=== PATIENT | male | born 1960 | race Caucasian/White ===

== ENCOUNTER → 2017-04-15 | Day surgery (SDC) | payer SELFPAY ==
[2017-04-11 13:23] VITALS: Ht 175.3 cm; Wt 90.9 kg
[~2017-04-15] VITALS: Ht 175.3 cm; Wt 90.9 kg
[~2017-04-15] MED LIST: ATROPINE SULFATE 0.1 MG/ML 5ML SYR IV PRN; EpHEDrine SULFATE INJ 50 MG/ML AMP IV PRN; LIDOCAINE HCL 2% 2 ML VIAL (20MG/ML) ONE; MIDAZOLAM HCL 1 MG/ML 2ML VIAL ONE; ONDANSETRON INJ 2 MG/ML 2 ML VIAL ONE; POTASSIUM PO; PROPOFOL IV EMULSION 10 MG/ML 20 ML VIAL IV ONE
[2017-04-15 14:24] VITALS: TEMP 36.9
--- NOTE | 2017-04-15 15:27 | Endo History and Physical ---
History & Physical Date of Service: Apr 15, 2017. Chief Complaint: Screening Referring Physician: Dr. Saurabh Evans History of Present Illness 1st screening colon Past Surgical History Hx Cardiac Surgery: No Hx Internal Defibrillator: No Hx Pacemaker: No Hx Abdominal Surgery: Yes (APPY) Hx of Implantable Prosthesis: No Hx Post-Op Nausea and Vomiting: No Hx Cancer Surgery: No Hx Thoracic Surgery: No Hx Orthopedic: No Hx Urinary Tract Surgery: No Family History None Social History Smoking Status: Never Smoker Hx Substance Use: No Hx Alcohol Use: No Allergies Coded Allergies: No Known Allergies (Verified , 04/15/17) Current Medications Reported Home Medications Medications Dose Route/Sig Max Daily Dose Days Date Category [Potassium] 1 Cap PO QAM 04/11/17 Reported Vital Signs Weight (Kilograms): 90.91 Height (Feet): 5 Height (Inches): 9 Date Time Temp Pulse Resp B/P (MAP) Pulse Ox O2 Delivery O2 Flow Rate FiO2 04/15/17 14:24 36.9 67 20 135/80 (98) 94 Room Air Physical Exam General Appearance: WD/WN, no apparent distress Respiratory/Chest: Auscultation: breath sounds normal Cardiovascular: Heart Auscultation: RRR Abdomen: Bowel Sounds: normal Inspection & Palpation: soft, non-distended, no tenderness, guarding & rebound Assessment and Plan screening colonoscopy
--- NOTE | 2017-04-15 16:32 | Discharge Instructions ---
Endoscopy Patient Instructions Date / Procedure(s) Performed Apr 15, 2017. Colonoscopy Allergy Information Coded Allergies: No Known Allergies (Verified , 04/15/17) Discharge Date / Findings Apr 15, 2017. normal colon Medication Instructions Restart Stopped Medication(s): Reported Home Medications Medications Dose Route/Sig Max Daily Dose Days Date Category [Potassium] 1 Cap PO QAM 04/11/17 Reported Reported Home Medications Medications Dose Route/Sig Max Daily Dose Days Date Category [Potassium] 1 Cap PO QAM 04/11/17 Reported Provider Instructions Activity Restrictions - No exercising or heavy lifting for 24 hours. - Do not drink alcohol the day of the procedure. - Do not drive a car or operate machinery until the day after the procedure. - Do not make any important decisions or sign important papers in 24 hours after the procedure. Following Day: - Return to full activity which may include returning to work/school. Diet Start your diet with liquids and light foods (jello, soup, juice, toast). Then eat your usual diet if not nauseated. Treatment For Common After Affects For mild abdominal pain, bloating, or excessive gas: - Rest - Eat lightly - Lie on right side Follow-Up Information Follow-up with Dr. Saurabh Evans as scheduled Anesthesia Information What You Should Know You have had a procedure that required some medicine to reduce anxiety and discomfort. This treatment is called moderate sedation. After receiving the treatment, you may be sleepy, but you will be able to breathe on your own. The effects of the treatment may last for several hours. Follow these instructions along with Activity/Diet recommendations noted above: * Do NOT do anything where dizziness or clumsiness would be dangerous. * Rest quietly at home today, then you can be up and about tomorrow. * Have a responsible person stay with you the rest of today. * You may have had an I.V. today. If so, you may take the dressing off later today. Recommendations Call your doctor if: * Trouble breathing * Continuous vomiting for more than 24 hours * Temperature above 101 degrees * Severe abdominal pain or bloating * Pain not relieved by pain medicine ordered * There is increased drainage or redness from any incision * A large amount of rectal bleeding greater than 2-3 tablespoons. (If you had a polyp/s removed or have hemorrhoids, a small amount of blood - from the rectum is to be expected.) * You have any unanswered questions or concerns. IN THE EVENT OF A SERIOUS EMERGENCY, GO TO THE NEAREST EMERGENCY ROOM Your discharge instructions were prepared by provider Vadim Resendez. Patient Instructions Signature Page Saleem Padron Patient (or Guardian) Signature/Date: I have read and understand the instructions given to me by my caregivers. Caregiver/RN/Doctor Signature/Date: The above-named patient and/or guardian has received patient instructions on this date. + Original Patient Signature Page (only) stays with chart. Please make copy for patient.
--- NOTE | 2017-04-15 16:37 | GI REPORT ---
Procedure Date: 04/15/2017 4:08 PM Procedure: Colonoscopy Indications: Screening for colorectal malignant neoplasm, This is the patient's first colonoscopy Medicines: Propofol per Anesthesia Complications: No immediate complications. Estimated blood loss: None. Estimated Blood Loss: Estimated blood loss: none. Procedure: Pre-Anesthesia Assessment: - Prior to the procedure, a History and Physical was performed, and patient medications and allergies were reviewed. The patient's tolerance of previous anesthesia was also reviewed. The risks and benefits of the procedure and the sedation options and risks were discussed with the patient. All questions were answered, and informed consent was obtained. Prior Anticoagulants: The patient has taken no previous anticoagulant or antiplatelet agents. ASA Grade Assessment: II - A patient with mild systemic disease. After reviewing the risks and benefits, the patient was deemed in satisfactory condition to undergo the procedure. After I obtained informed consent, the scope was passed under direct vision. Throughout the procedure, the patient's blood pressure, pulse, and oxygen saturations were monitored continuously. The scope was introduced through the anus and advanced to the terminal ileum, with identification of the appendiceal orifice and IC valve. The colonoscopy was performed without difficulty. The patient tolerated the procedure well. The quality of the bowel preparation was good. Findings: The perianal and digital rectal examinations were normal. Pertinent negatives include normal sphincter tone, no palpable rectal lesions and no anal lesion or abnormality was detected. The colon (entire examined portion) appeared normal. The terminal ileum appeared normal. The retroflexed view of the distal rectum and anal verge was normal and showed no anal or rectal abnormalities. Impression: - The entire examined colon is normal. - The examined portion of the ileum was normal. - The distal rectum and anal verge are normal on retroflexion view. - No specimens collected. Recommendation: - Discharge patient to home (ambulatory). - Patient has a contact number available for emergencies. The signs and symptoms of potential delayed complications were discussed with the patient. Return to normal activities tomorrow. Written discharge instructions were provided to the patient. - Resume regular diet. - Continue present medications. - Repeat colonoscopy in 10 years for screening purposes. - Return to referring physician as previously scheduled. MD Vadim Roblero MD 04/15/2017 4:36:59 PM This report has been signed electronically. Note Initiated On: 04/15/2017 4:08 PM I attest to the content of the Intraoperative Record and orders documented therein, exceptions below
[2017-04-15 17:06] VITALS: BP 123/73; PULSE 59; O2SAT 96
--- NOTE | 2017-04-15 17:12 | Anesthesiology Progress Note ---
Anesthesia Post Op Note Date & Time Apr 15, 2017 at 17:12 Vital Signs Pain Intensity: 0 Vital Signs Past 12 Hours Date Time Temp Pulse Resp B/P (MAP) Pulse Ox O2 Delivery O2 Flow Rate FiO2 04/15/17 16:51 55 16 114/67 (83) 97 Room Air 04/15/17 16:36 55 12 109/72 (84) 96 Room Air 04/15/17 14:24 36.9 67 20 135/80 (98) 94 Room Air Notes Mental Status: alert / awake / arousable, participated in evaluation Pt Amnestic to Procedure: Yes Nausea / Vomiting: adequately controlled Pain: adequately controlled Airway Patency, RR, SpO2: stable & adequate BP & HR: stable & adequate Hydration State: stable & adequate Anesthetic Complications: no major complications apparent
== END | disposition home or self-care (01) ==
LOC: C.GI 13:59
PROVIDERS: ATTEND Internal Medicine Gastroenterology
DX: Z12.11 Encounter for screening for malignant neoplasm of colon (principal)

== ENCOUNTER 2017-05-19 09:47 | Day surgery (SDC) | payer OTHER ==
[2017-05-17 08:59] VITALS: BMI 31.0
[~2017-05-19] VITALS: Ht 175.3 cm; Wt 95.4 kg
[~2017-05-19 09:47] MED LIST changes: -ATROPINE SULFATE 0.1 MG/ML 5ML SYR IV PRN; +CEFAZOLIN 2000MG IV PUSH 10 ML IV SCH; -EpHEDrine SULFATE INJ 50 MG/ML AMP IV PRN; +FENTANYL CITRATE INJ 50 MCG/1 ML 2 ML VIAL ONE; +LACTATED RINGER'S 1000ML 1,000 ML IV SCH; -LIDOCAINE HCL 2% 2 ML VIAL (20MG/ML) ONE; -ONDANSETRON INJ 2 MG/ML 2 ML VIAL ONE; +POTA10CA28 PO; -POTASSIUM PO; -PROPOFOL IV EMULSION 10 MG/ML 20 ML VIAL IV ONE
[2017-05-19 10:15] VITALS: BP 133/82; PULSE 48; TEMP 36.6; O2SAT 96; Ht 175.3 cm; Wt 95.4 kg
--- NOTE | 2017-05-19 10:40 | History & Physical Bridge Note ---
H&P Re-Evaluation Bridge Note: I have examined the patient, reviewed the History & Physical and in the interval since the performance of the History & Physical I have noted the following changes of clinical significance: No changes noted
[2017-05-19] MEDS ORDERED: BUPIVACAINE/EPINEPHRINE 0.5% MPF 1:200,000 30 ML VIAL ONE (10:45)
--- NOTE | 2017-05-19 11:45 | [facility] Operative Report ---
Operative Report Operative Date May 19, 2017. Pre-Operative Diagnosis umbilical hernia Post-Operative Diagnosis same Procedure(s) Performed open umbilical hernia repair Surgeon earnest Candy Feeder Surgeon(s) Quoc almaguer Findings approx 1.5 cm umbilical hernia Anesthesia LMA Complication(s) None Disposition Recovery Room / PACU Description of Procedure After informed consent was obtained the patient was taken to the operating room and placed in a supine position. After successful placement of the laryngeal mask airway the abdomen was shaved and sterilely prepped and draped in usual fashion. An infraumbilical curvilinear incision was made with 15 blade scalpel and carried down through the soft tissue using electrocautery. We carried this down to the anterior fascia. A Margarita clamp was then used to come around the superior pole of the umbilicus. We detached the umbilical stalk using electrocautery revealing an approximate 1.5 cm defect. There was some omentum and preperitoneal fat within it. We did open the hernia sac and excised it. We were then able to reduce the omentum back down into the abdominal cavity. Because of the small size the defect I opted to not use mesh. I used #1 Ethibond in interrupted [id number] fashion to primarily close the defect without much tension. We then thoroughly irrigated the wound. I reattach the umbilicus to the fascia using 0 Vicryl. We then closed deep layers using 3-0 Vicryl and skin closed using 4-0 Monocryl. Marcaine was injected around the area for postoperative analgesia and skin glue used as a dressing My physician's faculty research assistant was present throughout the entire case. She helped prepped the patient as well as all retractors and expose the defect for the entire case. She also help close the deep wound as well as skin and placed the abdominal dressing I attest to the content of the Intraoperative Record and any orders documented therein. Any exceptions are noted below.
[2017-05-19] MEDS ORDERED: ONDANSETRON INJ 2 MG/ML 2 ML VIAL ONE (11:54)
[2017-05-19] MEDS ORDERED: PROPOFOL IV EMULSION 10 MG/ML 20 ML VIAL IV ONE (11:54)
[2017-05-19] MEDS ORDERED: DEXAMETHASONE SOD INJ 4 MG/ML VIAL ONE (11:54)
[2017-05-19] MEDS ORDERED: LIDOCAINE HCL 2% 2 ML VIAL (20MG/ML) ONE (11:54)
[2017-05-19] MEDS ORDERED: SODIUM CHLORIDE 0.9% 1000ML 1,000 ML IV SCH (11:56)
[2017-05-19] MEDS ORDERED: HYDR-5688 PO (11:57)
[2017-05-19] MEDS ORDERED: ONDANSETRON INJ 2 MG/ML 2 ML VIAL IV PRN ×2 (12:00→12:15)
[2017-05-19] MEDS ORDERED: HYDROCODONE/ACETAMIN 5/325MG TAB PO PRN ×2 (12:00)
--- NOTE | 2017-05-19 12:00 | Discharge Instructions ---
Discharge Instructions Date of Service May 19, 2017. Admission Reason for Admission: Umbilical Hernia Discharge Discharge Diagnosis / Problem: Umbilical Hernia Discharge Goals Goal(s): Decrease discomfort, Improve function Activity Recommendations Activity Limitations: as noted below Lifting Limitations: no more than 10 pounds Exercise/Sports Limitations: until after follow-up appointment May Resume Sexual Activity: after follow-up appointment Shower/Bathe: tomorrow Driving or Machine Use: resume 1 day after discharge . Instructions / Follow-Up Instructions / Follow-Up You may remove the dressing over your incision tomorrow morning. Over your incision is surgical glue, Dermabond, you can shower with soap and water tomorrow AM. Please follow-up with Dr. Best in the office in 1-2 weeks. Please call the office at [phone] to make an appointment if you do not have one already. Please call the office with any questions or concerns. Current Hospital Diet Patient's current hospital diet: Discharge Diet Recommended Diet: Regular Diet Procedures Procedures Performed: open umbilical hernia repair Pending Studies Studies pending at discharge: no Medical Emergencies . Who to Call and When: Medical Emergencies: If at any time you feel your situation is an emergency, please call 911 immediately. . Non-Emergent Contact Non-Emergency issues call your: Primary Care Provider, Surgeon Call Non-Emergent contact if: temperature is above 101.5, your pain is not controlled, wound has increased drainage, wound has increased redness . "Provider Documentation" section prepared by Falguni Adan. . VTE Core Measure Inpt VTE Proph given/why not?: SCD's [place] Drug Monitoring Program Search Results: patient reviewed within database, no issues identified
[2017-05-19] MEDS ORDERED: FENTANYL CITRATE INJ 50 MCG/1 ML 2 ML VIAL IV PRN (12:15)
[2017-05-19] MEDS ORDERED: LABETALOL HCL IV 5 MG/ML 20ML IV PRN (12:15)
[2017-05-19] MEDS ORDERED: ATROPINE SULFATE 0.1 MG/ML 5ML SYR IV PRN (12:15)
[2017-05-19] MEDS ORDERED: KETOROLAC TROMETHAMINE 30 MG/ML VIAL IV. PRN (12:15)
[2017-05-19 12:47] VITALS: BP 125/82; PULSE 48; TEMP 36.6; O2SAT 94
[2017-05-19 13:15] VITALS: BP 145/82; PULSE 51; TEMP 36; O2SAT 97
--- NOTE | 2017-05-19 13:35 | Anesthesiology Progress Note ---
Anesthesia Post Op Note Date & Time May 19, 2017 at 13:34 Vital Signs Pain Intensity: 0 Vital Signs Past 12 Hours Date Time Temp Pulse Resp B/P (MAP) Pulse Ox O2 Delivery O2 Flow Rate FiO2 05/19/17 12:35 36.0 58 12 119/73 94 Room Air 05/19/17 12:25 47 12 123/88 93 Room Air 05/19/17 12:15 47 12 132/84 99 Oxymask 10 05/19/17 12:05 48 12 132/84 100 Oxymask 10 05/19/17 11:57 36.1 53 12 137/89 98 Oxymask 10 05/19/17 10:15 36.6 48 18 133/82 (99) 96 Room Air Notes Mental Status: alert / awake / arousable, participated in evaluation Pt Amnestic to Procedure: Yes Nausea / Vomiting: adequately controlled Pain: adequately controlled Airway Patency, RR, SpO2: stable & adequate BP & HR: stable & adequate Hydration State: stable & adequate Anesthetic Complications: no major complications apparent
== END 2017-05-19 13:42 | disposition home or self-care (01) ==
LOC: C.ACU 09:47
PROVIDERS: ATTEND Surgery
DX: K42.9 Umbilical hernia without obstruction or gangrene (principal); E66.9 Obesity, unspecified; Z68.31 Body mass index [BMI] 31.0-31.9, adult; Z79.899 Other long term (current) drug therapy; Z90.89 Acquired absence of other organs; Z80.9 Family history of malignant neoplasm, unspecified

== ENCOUNTER 2024-09-28 01:59 | Inpatient (IN) ==
[2024-09-28] MEDS: SODIUM CHLORIDE 0.9% 1,000 ML IV ONE ×2 (03:23→05:46)
[2024-09-28] MEDS: ONDANSETRON INJ 2 MG/ML 2 ML VIAL IV STA (03:23)
[2024-09-28] MEDS: ACETAMINOPHEN 1,000 MG/100 ML VIAL IV STA (03:24)
[2024-09-28] MEDS: diphenhydrAMINE 50 MG/ML VIAL IV STA (03:24)
[2024-09-28] MEDS: MoRPHine SULFATE 4 MG/ML 1 ML CARP\\VIAL IV PRN (03:24)
[2024-09-28] MEDS: KETOROLAC 30 MG/ML VIAL IV STA (03:24)
[2024-09-28 03:35] LABS: Hematocrit (blood only) 41.6 % (42.0-52.0); Hemoglobin 14.2 g/dl (14.0-18.0); Mean Corpuscular Hgb Conc 34.1 g/dL (32.0-36.0); Mean Corpuscular Volume 87.9 fL (80.0-100.0); Mean Platelet Volume 9.3 fL (9.4-12.4); Platelet Count 183 K/uL (130-400); RDW Coefficient of Variation 13.4 % (11.5-14.5); RDW Standard Deviation 43.5 fL (36.4-46.3); Red Blood Count 4.73 M/uL (4.70-6.10); White Blood Count 5.49 K/ul (4.8-10.8)
[2024-09-28 03:38] LABS: Appearance Urine Clear (Clear); Bilirubin Urine Negative (Negative); Blood Urine Negative (Negative); Color Urine Yellow; Glucose Urine UA Negative (Negative); Ketones Urine Trace (Negative); Leukocyte Esterase Urine Negative (Negative); Nitrite Urine Negative (Negative); Protein Urine Negative (Negative); Specific Gravity Urine 1.017 (1.000-1.030); Urobilinogen Urine Negative (Negative); pH Urine 5.5 (4.5-7.5)
[2024-09-28 03:54] LABS: Albumin Globulin Ratio 1.2 (0.9-2); Albumin Level 3.9 gm/dl (3.4-5.0); BUN Creatinine Ratio 18.3 (10-20); Bilirubin,Total 0.6 mg/dl (0.2-1.0); C Reactive Protein 2.07 mg/dl (0-0.5); Calcium 8.8 mg/dl (8.6-10.3); Creatinine Clr Calc Pharmacy 91.8 ml/min; Globulin 3.2 gm/dl (2.5-4.0); Potassium 4.4 mmol/L (3.5-5.1); Total Protein 7.1 gm/dl (6.0-8.3)
[2024-09-28 04:00] LABS: Troponin I High Sensitivity 4.1 pg/ml (0-20)
[2024-09-28 04:10] LABS: Thyroid Stimulating Hormone 6.636 uIu/ml (0.300-4.500)
[2024-09-28 04:15] LABS: ALC (manual) 1.32 K/uL (1.2-3.4); ANC (manual) 3.51 K/uL (1.4-6.5); Eosinophils # (manual) 0.16 K/uL (0-0.50); Eosinophils % (manual) 3 %; Lymphocytes # (manual) 0.71 K/uL (1.2-3.4); Lymphocytes % (manual) 13 %; Monocytes # (manual) 0.49 K/uL (0.11-0.59); Monocytes % (manual) 9 %; Neutrophils # (manual) 3.51 K/uL (1.40-6.50); Neutrophils % (manual) 64 %; Polychromasia 1+; Reactive Lymphocytes % (manual) 11 %
[2024-09-28 04:24] LABS: Adenovirus PCR Not Detected (NotDetected); Bordetella parapertussis PCR Not Detected (NotDetected); Bordetella pertussis PCR Not Detected (NotDetected); Chlamydia pneumoniae PCR Not Detected (NotDetected); Coronavirus 229E PCR Not Detected (NotDetected); Coronavirus CoV-2 (COVID19)PCR Not Detected (NotDetected); Coronavirus HKU1 PCR Not Detected (NotDetected); Coronavirus NL63 PCR Not Detected (NotDetected); Coronavirus OC43PCR Not Detected (NotDetected); Human Metapneumovirus PCR Not Detected (NotDetected); Influenza A PCR Not Detected (NotDetected); Influenza B PCR Not Detected (NotDetected); Mycoplasma pneumoniae PCR Not Detected (NotDetected); Parainfluenza Virus 1 PCR Not Detected (NotDetected); Parainfluenza Virus 2 PCR Not Detected (NotDetected); Parainfluenza Virus 3 PCR Not Detected (NotDetected); Parainfluenza Virus 4 PCR Not Detected (NotDetected); Respiratory Syncytial VirusPCR Not Detected (NotDetected); Rhinovirus/Enterovirus PCR Not Detected (NotDetected)
[2024-09-28] MEDS: OPTIRAY 320 125ml IV ONE (04:38)
[2024-09-28 04:45] LABS: T4 Free Thyroxine 0.74 ng/dl (0.61-1.60)
--- NOTE | 2024-09-28 05:12 | CT Scan Report ---
EXAM: CT angio head w con CLINICAL HISTORY: atypical migraine TECHNIQUE: Contrast enhanced thin slice CT angiography scan of the cerebral vessels was performed with intravenous contrast. Angiographic images were processed, 3D MIP images were acquired for interpretation. Contiguous axial images were obtained. Reformatted coronal and sagittal images were also reviewed. If IV contrast material had not been administered, the likelihood of detecting abnormalities relevant to the patients condition would have been substantially decreased. CT scan was performed according to ALARA (as low as reasonable achievable). COMPARISON: none. FINDINGS: Bilateral internal carotid arteries show normal course, calibre and opacification in the canalicular and cavernous part. Their division into the anterior cerebral artery and middle cerebral artery is defined. A1, A2 and M1, M2 segments are normal on both the sides. Bilateral vertebral arteries are seen to unite the form the basilar artery in a normal fashion. Basilar artery shows normal course, caliber and opacification. Its division into the posterior cerebral arteries is defined. Bilateral P1 and P2 segments are normal. Visualized venous structures show normal opacification. No evidence of intracranial aneurysm or AV malformation is seen. IMPRESSION: 1. No evidence of stenosis or aneurysm. No evidence of dissection. Electronically signed by Hoang Hawkins 09-28-2024 05:11 AM
--- NOTE | 2024-09-28 05:12 | CT Scan Report ---
EXAM: CT angio neck with con CLINICAL HISTORY: atypical migraine TECHNIQUE: Contrast enhanced thin slice CT angiography scan of the carotid vessels was performed with intravenous contrast. Angiographic images were processed, 3D MIP images were acquired for interpretation.Contiguous axial images were obtained. Reformatted coronal and sagittal images were also reviewed. If IV contrast material had not been administered, the likelihood of detecting abnormalities relevant to the patients condition would have been substantially decreased. CT scan was performed according to ALARA (as low as reasonable achievable). COMPARISON: None. FINDINGS: Included great vessels of the aortic arch are grossly unremarkable. Common carotid artery, carotid Bulb, internal carotid artery , and origin of the external carotid artery are well opacified. Vertebral arteries are well opacified. Jugular veins are well opacified. Included lung apices are grossly unremarkable. Thyroid gland appears unremarkable. IMPRESSION: 1. No evidence of stenosis or aneurysm. No evidence of dissection. Electronically signed by Hoang Hawkins 09-28-2024 05:12 AM
--- NOTE | 2024-09-28 05:12 | CT Scan Report ---
EXAM: CT head/brain wo con CLINICAL HISTORY: atypical migraine TECHNIQUE: Multiple axial images are obtained from the skull base to the vertex without contrast. CT scan was performed according to ALARA (as low as reasonable achievable). COMPARISON: None. FINDINGS: There is cerebral atrophy. No evidence of space occupying lesion, hemorrhage, edema, mass effect, midline shift, extra axial collection, or hydrocephalus is noted. Basal cisterns are symmetric and normal in size and configuration. There are scattered periventricular hypodensities as can be seen with chronic microvascular ischemic changes. The leal-white matter differentiation is preserved. Visualized paranasal sinuses and mastoid air cells are well aerated. Orbital contents are within normal limits. Bony structures are intact. IMPRESSION: 1. No evidence of acute intracranial abnormality is demonstrated. 2. Chronic microvascular ischemic changes. 3. Cerebral atrophy. Electronically signed by Hoang Hawkins 09-28-2024 05:11 AM
--- NOTE | 2024-09-28 05:37 | Emergency Department Note ---
ED Visit Note ED Physician Supervisory Note & Attestation: I was consulted by the Advanced Practice Provider, Jad CARVALHO. I personally made/approved the management plan and take responsibility for the patient management. I performed a substantive portion of the visit. This includes the aspects of: Evaluation: Patient uncomfortable despite receiving multiple rounds of IV pain medications. CT of the head and angios of the head and neck unremarkable. Laboratory workup does show mildly elevated ESR/CRP. Patient has had 8 days of symptoms. Initially febrile for several days. Complaining of headache, neck stiffness and bodyaches. Also noting some photophobia. Does note that he had a thorn in his left flank that had to be dug out a few days prior to this. Unclear if this may have been a tick bite though seems to be healing well now. Patient does not have overt nuchal rigidity but does seem uncomfortable with exam. Discussed at length options and plan will be to proceed with LP to rule out underlying meningitis. Patient and are aware of the risks including bleeding, neurovascular injury, causing infection, pain, etc. Aware of options to not do LP. They would like to proceed. MDM: Ongoing headache, fevers, elevated ESR/CRP with unremarkable CT of the head. He received multiple medications for treatment of possible migraine without much improvement. Given examination and findings LP indicated. LP obtained by me without difficulty. WBC 7. Meningeal BioFire negative. This is likely viral meningitis. He was empirically given antibiotics in the setting of elevated WBC and CSF. Patient is not septic at this time. Imaging: CT of the head without contrast as per my informal interpretation reveals no intracranial hemorrhage or mass effect. Confirmed by radiologist. Procedure: Lumbar Puncture Indication: headache/fevers. Verbal consent was obtained after the risks and benefits were explained, including but not limited to headache, bleeding/clotting, scarring, infection, pain, and bone/joint/nerve damage. At this time, the risks of the procedure are less than the risks of NOT performing the procedure. A time out was taken and the correct patient and site identified. The patient was placed in the upright position and the back was prepped with betadine and draped in the standard fashion. The L3 intervertebral space was identified, anesthetized locally with 1% lidocaine without epinephrine, and the spinal needle was inserted through the skin with the bevel parallel to the dural fibers. The needle was carefully advanced into the lumbar cistern and 3 tubes of clear CSF was obtained. The stylet was replaced and the needle was removed. A bandaid was placed and the patient was placed in the supine position. The patient tolerated the procedure well and there were no complications. Erickson Valverde MD
--- NOTE | 2024-09-28 05:38 | Emergency Department Note ---
History of Present Illness General Chief complaint: Headache Stated complaint: SEVERE HEADACHE Time Seen by Provider: 09/28/24 03:01 History of Present Illness Maximum Pain Intensity: 8 This is a 64-year-old male presenting to the emergency department for evaluation of persistent headache for the past 8 days. Patient may have had a low-grade fever prior to onset of headache. He does have full body aches and some neck stiffness. No chest pain, chest tightness, or shortness of breath. Patient had been doing some outside yard work prior to symptoms. [facility] yesterday and was given Toradol without any relief of symptoms. Patient's discomfort is rated an 8/10 at best and a 10/10 at worst. He does not have history of migraines. Home Medications Medication Instructions Recorded Confirmed Type levothyroxine 125 mcg tablet 125 mcg PO QAM 11/27/21 09/28/24 History (Synthroid) pravastatin 40 mg tablet 40 mg PO QAM 11/27/21 09/28/24 History multivitamin 1 tab PO QAM 12/07/21 09/28/24 History Allergies Allergy/AdvReac Type Severity Reaction Status Date / Time simvastatin Allergy Severe Vomiting Unverified 09/28/24 08:36 Past Med/Surg History Problem List (Updated 09/28/24 @ 22:35 by Jad Burnette PA-C) Transaminitis (Acute) Primary hypothyroidism Hyperlipidemia Viral meningitis (Acute) Encounter for pre-operative examination Ulnar neuropathy of both upper extremities Carpal tunnel syndrome on both sides Ventral hernia Medical History History of kidney stones Hypothyroidism Tinnitus of both ears Hyperlipidemia Surgical History S/P repair of ventral hernia (12/11/21) Open Ventral Hernia Repair - [facility] Best, History of elbow surgery bilt History of lithotripsy History of umbilical hernia repair History of colonoscopy History of appendectomy History of tooth extraction History of tonsillectomy Family History Other No family history of adverse response to anesthesia Social History Smoking Status: Never smoker Second Hand Exposure: No; Do You Dip or Chew Tobacco: No; Hx Alcohol Use: No Hx Substance Use: No Preferred Language: Latvian Communication Ability: Effective General Maintenance Technician Required: No Beliefs That Will Affect Care: None Current Living Situation: Spouse Feels Safe at Home: Yes Assistive Devices: Glasses Review of Systems A total of 10 systems reviewed and were otherwise negative Physical Exam Vital Signs Vital Signs - 24 hr 09/28/24 02:07 09/28/24 02:16 09/28/24 02:48 Temperature 37 C Temperature Source Oral Pulse Rate 74 76 Pulse Rate [Apical] 76 Pulse Rhythm [Apical] Regular Pulse Strength [Apical] Normal Respiratory Rate 20 17 Respiratory Effort / Characteristics Non-Labored Respiratory Depth Normal Normal Respiratory Pattern Regular Blood Pressure 155/91 H Blood Pressure [Right Arm] 142/89 H Blood Pressure Mean 112 Blood Pressure Mean [Right Arm] 106 Blood Pressure Position [Right Arm] Sitting Pulse Oximetry 93 94 Oxygen Delivery Method Room Air Room Air Oxygen Flow Rate Sepsis Recent Fever Within 48 Hours No Sepsis New/Unexplained Change in Mental Status N/A Sepsis Action Taken by Nursing No Action Required 09/28/24 03:34 09/28/24 04:01 09/28/24 06:00 Temperature Temperature Source Pulse Rate Pulse Rate [Apical] 62 60 Pulse Rhythm [Apical] Regular Regular Pulse Strength [Apical] Normal Normal Respiratory Rate 17 18 Respiratory Effort / Characteristics Non-Labored Non-Labored Respiratory Depth Normal Normal Respiratory Pattern Regular Regular Blood Pressure Blood Pressure [Right Arm] 135/76 141/77 H Blood Pressure Mean Blood Pressure Mean [Right Arm] 95 98 Blood Pressure Position [Right Arm] Sitting Lying Pulse Oximetry 94 93 94 Oxygen Delivery Method Room Air Room Air Room Air Oxygen Flow Rate Sepsis Recent Fever Within 48 Hours Sepsis New/Unexplained Change in Mental Status Sepsis Action Taken by Nursing 09/28/24 06:11 09/28/24 08:00 Temperature Temperature Source Pulse Rate 60 Pulse Rate [Apical] 56 L Pulse Rhythm [Apical] Pulse Strength [Apical] Respiratory Rate 18 Respiratory Effort / Characteristics Non-Labored Respiratory Depth Normal Respiratory Pattern Blood Pressure Blood Pressure [Right Arm] 124/72 Blood Pressure Mean Blood Pressure Mean [Right Arm] 89 Blood Pressure Position [Right Arm] Pulse Oximetry 96 Oxygen Delivery Method Nasal Cannula Oxygen Flow Rate 2 Sepsis Recent Fever Within 48 Hours Sepsis New/Unexplained Change in Mental Status Sepsis Action Taken by Nursing VITALS: Vitals are noted on the nurse's note and reviewed by myself. Vital signs stable. GENERAL: White male who is moderately uncomfortable on arrival. He is wearing sunglasses in the room. HEAD: Normocephalic atraumatic. NECK: Supple without nuchal rigidity. No lymphadenopathy. No thyromegaly. Cervical spine is nontender. HEART: Regular rate and rhythm without murmurs gallops or rubs. LUNGS: Clear to auscultation bilaterally without wheezes, rales or rhonchi. No retractions or accessory muscle use. ABDOMEN: Positive normal bowel sounds x 4. Soft, nontender, without masses or organomegaly. No guarding or rebound tenderness. MUSCULOSKELETAL: No muscle atrophy, erythema, or edema noted. Full range of motion in all extremities. NEURO: Patient was alert and oriented to person place and time. CN II through XII grossly intact. No focal neurological deficits. SKIN: The skin was without rashes, erythema, edema, or bruising. Capillary refill less than 2 seconds. Course Administered Medications Methylprednisolone 60 mg/ (Syringe) 0.96 mls @ 1.5 mls/min IV Q8H [facility] Stop: 10/28/24 11:14 Last Admin: 09/28/24 18:35 Dose: 1.5 mls/min Documented By: Admin: 09/28/24 12:56 Dose: 1.5 mls/min Documented By: GEORGIA Ceftriaxone Sodium (Rocephin) 2,000 mg in 50 mls @ 100 mls/hr IV Q12H [facility]; Protocol Stop: 09/30/24 19:59 Last Infusion: 09/28/24 20:42 Dose: Infused Documented By: Admin: 09/28/24 19:26 Dose: 100 mls/hr Documented By: HARDY Levothyroxine Sodium (Levothyroxine Sodium 125 Mcg Tablet) 125 mcg PO DAILYBB [facility] Stop: 10/28/24 10:41 Last Admin: 09/28/24 12:56 Dose: 125 mcg Documented By: GEORGIA Multivitamins (Multivitamin Tab) [facility] Stop: 10/28/24 10:59 Last Admin: 09/28/24 12:56 Dose: 1 tab Documented By: GEORGIA Discontinued Medications Dexamethasone Sodium Phosphate (DexamethasonePf 10 Mg/Ml Vial) 10 mg IV NOW ONE Stop: 09/28/24 05:35 Last Admin: 09/28/24 05:45 Dose: 10 mg Documented By: HARDY(2) Diphenhydramine HCl (Diphenhydramine 50 Mg/Ml Vial) 25 mg IV NOW STA Stop: 09/28/24 03:06 Last Admin: 09/28/24 03:24 Dose: 25 mg Documented By: SAS(2) Hydromorphone HCl (Hydromorphone Inj 1 Mg/Ml Syringe) 1 mg IV NOW STA Stop: 09/28/24 05:35 Last Admin: 09/28/24 05:45 Dose: 1 mg Documented By: SAS(2) Sodium Chloride (Nss) 1,000 mls @ 999 mls/hr IV .Q1H1M ONE Stop: 09/28/24 04:05 Last Infusion: 09/28/24 04:24 Dose: Infused Documented By: SAS(2) Admin: 09/28/24 03:23 Dose: 999 mls/hr Documented By: HARDY(2) Acetaminophen (Ofirmev) 1,000 mg in 100 mls @ 400 mls/hr IV NOW STA Stop: 09/28/24 03:19 Last Infusion: 09/28/24 04:18 Dose: Infused Documented By: HARDY(2) Admin: 09/28/24 03:24 Dose: 400 mls/hr Documented By: HARDY(2) Sodium Chloride (Nss) 1,000 mls @ 999 mls/hr IV .Q1H1M ONE Stop: 09/28/24 06:34 Last Infusion: 09/28/24 07:43 Dose: Infused Documented By: MMHenrry Admin: 09/28/24 05:46 Dose: 999 mls/hr Documented By: HARDY(2) Magnesium Sulfate/Dextrose (Magnesium Sulfate / D5w) 1 gm in 100 mls @ 100 mls/hr IV NOW STA Stop: 09/28/24 06:34 Last Infusion: 09/28/24 06:55 Dose: Infused Documented By: HARDY(2) Admin: 09/28/24 05:45 Dose: 100 mls/hr Documented By: SAS(2) Ceftriaxone Sodium (Rocephin) 2,000 mg in 50 mls @ 100 mls/hr IV NOW STA Stop: 09/28/24 07:30 Last Infusion: 09/28/24 07:44 Dose: Infused Documented By: Admin: 09/28/24 07:13 Dose: 100 mls/hr Documented By: JAYY Vancomycin HCl 2,500 mg/ (Sodium Chloride) 550 mls @ 200 mls/hr IV NOW ONE Stop: 09/28/24 09:45 Last Infusion: 09/28/24 11:04 Dose: Infused Documented By: Admin: 09/28/24 07:40 Dose: 200 mls/hr Documented By: JAYY Sodium Chloride (Nss) 250 mls @ 999 mls/hr IV .Q16M ONE Stop: 09/28/24 10:40 Last Infusion: 09/28/24 13:14 Dose: Infused Documented By: Admin: 09/28/24 10:29 Dose: 999 mls/hr Documented By: JAYY Ioversol (Optiray 320 125ml) 125 ml IV ONCE ONE Stop: 09/28/24 04:39 Last Admin: 09/28/24 04:38 Dose: 118 ml Documented By: ELISABET Ketorolac Tromethamine (Ketorolac 30 Mg/Ml Vial) 30 mg IV NOW STA Stop: 09/28/24 03:06 Last Admin: 09/28/24 03:24 Dose: 30 mg Documented By: HARDY(2) Methylprednisolone (Methylprednisolone 10 Mg/Ml (For Ped Dose < 7mg)) 60 mg IV Q8H [facility] Stop: 10/28/24 10:41 Last Admin: 09/28/24 11:08 Dose: Not Given Documented By: JAYY Morphine Sulfate (Morphine Sulfate 4 Mg/Ml 1 Ml Carp\Vial) 4 mg IV Q30M PRN PRN Reason: Pain Stop: 10/12/24 03:04 Last Admin: 09/28/24 03:24 Dose: 4 mg Documented By: HARDY(2) Ondansetron HCl (Ondansetron Inj 2 Mg/Ml 2 Ml Vial) 4 mg IV NOW STA Stop: 09/28/24 03:06 Last Admin: 09/28/24 03:23 Dose: 4 mg Documented By: HARDY(2) Medical Decision Making Differential Diagnosis The differential diagnosis includes, but is not limited to: acute intracranial bleed, meningitis, encephalitis, mass or mass effect, sinusitis, infection, tumor, headache, temporal arteritis and carbon monoxide exposure, and migraine. Laboratory Data 09/28/24 03:20 09/28/24 03:20 Lab Results 09/28/24 09/28/24 Range/Units 03:19 03:20 WBC 5.49 (4.8-10.8) K/ul RBC 4.73 (4.70-6.10) M/uL Hgb 14.2 (14.0-18.0) g/dl Hct 41.6 L (42.0-52.0) % MCV 87.9 (80.0-100.0) fL MCH 30.0 (25.0-34.0) pg MCHC 34.1 (32.0-36.0) g/dL RDW Std Deviation 43.5 (36.4-46.3) fL RDW Coeff of Loly 13.4 (11.5-14.5) % Plt Count 183 (130-400) K/uL MPV 9.3 L (9.4-12.4) fL Neutrophils % (Manual) 64 % Lymphocytes % (Manual) 13 % Reactive Lymphs % (Man) 11 % Monocytes % (Manual) 9 % Eosinophils % (Manual) 3 % Neutrophils # (Manual) 3.51 (1.40-6.50) K/uL Total Absolute Neuts 3.51 (1.4-6.5) K/uL Lymphocytes # (Manual) 0.71 L (1.2-3.4) K/uL Reactive Lymphs # 0.60 K/uL Total Abs Lymphocytes 1.32 (1.2-3.4) K/uL Monocytes # (Manual) 0.49 (0.11-0.59) K/uL Eosinophils # (Manual) 0.16 (0-0.50) K/uL Polychromasia 1+ ESR 24 H (0-20) mm/hr Sodium 134 L (136-145) mmol/L Potassium 4.4 (3.5-5.1) mmol/L Chloride 100 (98-107) mmol/L Carbon Dioxide 29 (21-32) mmol/L Anion Gap 5 (3-11) BUN 17 (6-23) mg/dl Creatinine 0.93 (0.6-1.4) mg/dl Est Cr Clr Drug Dosing 91.8 ml/min eGFR 90.56 BUN/Creatinine Ratio 18.3 (10-20) Glucose 111 H (70-99(Fasting)) mg/dl Calcium 8.8 (8.6-10.3) mg/dl Magnesium 2.0 (1.7-2.4) mg/dl Total Bilirubin 0.6 (0.2-1.0) mg/dl AST 144 H (13-39) U/L ALT 361 H (7-52) U/L Alkaline Phosphatase 117 H (34-104) U/L Troponin I High Sens 4.1 (0-20) pg/ml C-Reactive Protein 2.07 H (0-0.5) mg/dl Total Protein 7.1 (6.0-8.3) gm/dl Albumin 3.9 (3.4-5.0) gm/dl Globulin 3.2 (2.5-4.0) gm/dl Albumin/Globulin Ratio 1.2 (0.9-2) TSH 6.636 H (0.300-4.500) uIu/ml Free T4 0.74 (0.61-1.60) ng/dl Urine Color Yellow Urine Appearance Clear (Clear) Urine pH 5.5 (4.5-7.5) Ur Specific [place] 1.017 (1.000-1.030) Urine Protein Negative (Negative) Urine Glucose (UA) Negative (Negative) Urine Ketones Trace H (Negative) Urine Blood Negative (Negative) Urine Nitrite Negative (Negative) Urine Bilirubin Negative (Negative) Urine Urobilinogen Negative (Negative) Ur Leukocyte Esterase Negative (Negative) Adenovirus (PCR) Not Detected (NotDetected) Anaplasma Smear See Comment Babesia Smear See Comment B. pertussis DNA (PCR) Not Detected (NotDetected) B.parapertussis DNA PCR Not Detected (NotDetected) Lyme Disease Screen Negative (Negative) C. pneumoniae DNA (PCR) Not Detected (NotDetected) Coronavirus OC43 (PCR) Not Detected (NotDetected) Coronavirus HKU1 (PCR) Not Detected (NotDetected) Coronavirus 229E (PCR) Not Detected (NotDetected) SARS-CoV-2 (PCR) Not Detected (NotDetected) Coronavirus NL63 (PCR) Not Detected (NotDetected) Human Metapneumovir PCR Not Detected (NotDetected) Influenza Type A (PCR) Not Detected (NotDetected) Influenza Type B (PCR) Not Detected (NotDetected) M. pneumoniae (PCR) Not Detected (NotDetected) Parainfluenza 1 (PCR) Not Detected (NotDetected) Parainfluenza 2 (PCR) Not Detected (NotDetected) Parainfluenza 3 (PCR) Not Detected (NotDetected) Parainfluenza 4 (PCR) Not Detected (NotDetected) RSV (PCR) Not Detected (NotDetected) Entero/Rhino (PCR) Not Detected (NotDetected) Imaging Data Radiologist's Impression: Head CT 09/28/24 03:24 EXAM: CT head/brain wo con CLINICAL HISTORY: atypical migraine TECHNIQUE: Multiple axial images are obtained from the skull base to the vertex without contrast. CT scan was performed according to ALARA (as low as reasonable achievable). COMPARISON: None. FINDINGS: There is cerebral atrophy. No evidence of space occupying lesion, hemorrhage, edema, mass effect, midline shift, extra axial collection, or hydrocephalus is noted. Basal cisterns are symmetric and normal in size and configuration. There are scattered periventricular hypodensities as can be seen with chronic microvascular ischemic changes. The leal-white matter differentiation is preserved. Visualized paranasal sinuses and mastoid air cells are well aerated. Orbital contents are within normal limits. Bony structures are intact. IMPRESSION: 1. No evidence of acute intracranial abnormality is demonstrated. 2. Chronic microvascular ischemic changes. 3. Cerebral atrophy. Electronically signed by Hoang Hawkins 09-28-2024 05:11 AM Head CTA 09/28/24 03:24 EXAM: CT angio head w con CLINICAL HISTORY: atypical migraine TECHNIQUE: Contrast enhanced thin slice CT angiography scan of the cerebral vessels was performed with intravenous contrast. Angiographic images were processed, 3D MIP images were acquired for interpretation. Contiguous axial images were obtained. Reformatted coronal and sagittal images were also reviewed. If IV contrast material had not been administered, the likelihood of detecting abnormalities relevant to the patients condition would have been substantially decreased. CT scan was performed according to ALARA (as low as reasonable achievable). COMPARISON: none. FINDINGS: Bilateral internal carotid arteries show normal course, calibre and opacification in the canalicular and cavernous part. Their division into the anterior cerebral artery and middle cerebral artery is defined. A1, A2 and M1, M2 segments are normal on both the sides. Bilateral vertebral arteries are seen to unite the form the basilar artery in a normal fashion. Basilar artery shows normal course, caliber and opacification. Its division into the posterior cerebral arteries is defined. Bilateral P1 and P2 segments are normal. Visualized venous structures show normal opacification. No evidence of intracranial aneurysm or AV malformation is seen. IMPRESSION: 1. No evidence of stenosis or aneurysm. No evidence of dissection. Electronically signed by Hoang Hawkins 09-28-2024 05:11 AM Neck CTA 09/28/24 03:24 EXAM: CT angio neck with con CLINICAL HISTORY: atypical migraine TECHNIQUE: Contrast enhanced thin slice CT angiography scan of the carotid vessels was performed with intravenous contrast. Angiographic images were processed, 3D MIP images were acquired for interpretation.Contiguous axial images were obtained. Reformatted coronal and sagittal images were also reviewed. If IV contrast material had not been administered, the likelihood of detecting abnormalities relevant to the patients condition would have been substantially decreased. CT scan was performed according to ALARA (as low as reasonable achievable). COMPARISON: None. FINDINGS: Included great vessels of the aortic arch are grossly unremarkable. Common carotid artery, carotid Bulb, internal carotid artery , and origin of the external carotid artery are well opacified. Vertebral arteries are well opacified. Jugular veins are well opacified. Included lung apices are grossly unremarkable. Thyroid gland appears unremarkable. IMPRESSION: 1. No evidence of stenosis or aneurysm. No evidence of dissection. Electronically signed by Hoang Hawkins 09-28-2024 05:12 AM MDM Narrative Physical exam and history were performed. Nursing notes, EMR, and Medication List were personally reviewed. No social concerns were identified as barriers to patients care. History was provided by the Patient and who is at bedside. Patient appears to have persistent headache symptoms for the past 8 days. He appears uncomfortable on arrival. I discussed options of care with patient and family at bedside. IV access was established and labs were obtained. Viral panel ordered. Patient was given IV Toradol, IV Tylenol, IV morphine, IV Benadryl, IV Zofran and IV saline. He was sent to CT scan for imaging of his head and neck. Patient's blood work is as above and was reviewed. He does not have a significant elevated white blood cell count, gross anemia, bandemia, or significant electrolyte imbalance. Transaminases are elevated of unknown etiology. Troponin is negative. Total bili is normal. Glucose 111. Lyme negative. Urine without distinct evidence of infection. CT scans were performed and independently reviewed by myself and radiology showing no acute process to account for the patient's symptoms. Case was discussed with my attending, Dr. Valverde, who also independently evaluated the patient. Concern is the patient may have meningitis and he continues to have discomfort despite multiple medications here in the ER. Dr. Valverde did perform lumbar puncture after consent from patient. Cell counts were performed and white count is 7 on the spinal fluid, which is highly concerning for viral meningitis. Escalation of care was considered, and felt to be necessary. Patient was started on vancomycin and Rocephin here in the ER with remaining cell counts pending. Case was discussed with the on-call hospitalist team, who agreed to evaluate the patient here in the ER. Please see their dictation for further patient course, plan, disposition. The chart was completed utilizing [employer] Voice Recognition Software. Grammatical errors, random word insertions, pronoun errors, and incomplete sentences are an occasional consequence of this system due to software limitations, ambient noise, and hardware issues. Any formal questions or concerns about the content, text, or information contained within the body of this dictation should be directly addressed to the provider for clarification. Impression & Plan Viral meningitis, Transaminitis Discharge Plan Visit Data Chief Complaint: Headache Stated Complaint: SEVERE HEADACHE ED Provider: Erickson Valverde ED Midlevel Provider: Jad Burnette Discharge Problem: Viral meningitis, Transaminitis Patient Disposition: Admitted As Inpatient Condition: Fair Discharge Instructions Interventions: ED Discharge Assessment Last Done: 09/28/24 10:22
[2024-09-28] MEDS: MAGNESIUM SULFATE / D5W 1 GM/100 ML BAG IV STA (05:45)
[2024-09-28] MEDS: dexAMETHasone**PF** 10 MG/ML VIAL IV ONE (05:45)
[2024-09-28] MEDS: HYDROmorphone INJ 1 MG/ML SYRINGE IV STA (05:45)
[2024-09-28 07:00] LABS: Appearance CSF Clear; CSF Count Tube # 3; CSF Xanthrochromic No xanthochromia; Color CSF Colorless; Red Blood Cell CSF Manual 31 (0); White Blood Cell CSF Manual 7 (0-5)
[2024-09-28] MEDS ORDERED: VANCOMYCIN CONSULT ACTIVE PRN (07:01)
[2024-09-28] MEDS: cefTRIAXone SODIUM 2,000 MG/50 ML BAG IV STA (07:13)
[2024-09-28] MEDS: VANCOMYCIN HCL 2,500 MG in SODIUM CHLORIDE 0.9% 500 ML IV ONE (07:40)
[2024-09-28 07:53] LABS: Cryptococcus neoformans/ga PCR Not Detected (NotDetected); Cytomegalovirus PCR Not Detected (NotDetected); Enterovirus PCR Not Detected (NotDetected); Escherichia coli K1 PCR Not Detected (NotDetected); Haemophilius influenzae PCR Not Detected (NotDetected); Herpes Simplex Virus 1 PCR Not Detected (NotDetected); Herpes Simplex Virus 2 PCR Not Detected (NotDetected); Human Herpes Virus 6 PCR Not Detected (NotDetected); Human Parechovirus PCR Not Detected (NotDetected); Listeria monocytogenes PCR Not Detected (NotDetected); Neisseria meningitidis PCR Not Detected (NotDetected); Streptococcus agalactiae PCR Not Detected (NotDetected); Streptococcus pneumoniae PCR Not Detected (NotDetected); Varicella Zoster Virus PCR Not Detected (NotDetected)
[2024-09-28] MEDS ORDERED: HYDROmorphone INJ 0.5 MG/0.5 ML SYR IV PRN (08:26)
--- NOTE | 2024-09-28 08:32 | History & Physical Report ---
Date of Service September 28, 2024 Assessment & Plan (1) Viral meningitis: Plan: Suspected on admission. Continue intravenous antibiotics until cultures are proven negative. Lumbar puncture was performed in the ED and CSF is clear and colorless. Currently afebrile with no significant white count elevation. Vancomycin and Rocephin were administered in the ED (2) Transaminitis: Plan: Mild elevation of liver enzymes on admission. Most likely due to viral illness. Will follow. Statin therapy is on hold (3) Hyperlipidemia: Plan: Statin therapy is on hold due to elevated liver enzymes (4) Primary hypothyroidism: Plan: Stable. Continue current thyroid replacement Plan Anticipate eventual discharge to home within the next few days depending on clinical status History of Present Illness Chief Complaint: Persistent headache, nuchal rigidity Primary Care Provider: [facility] 64-year-old white male with a history of hypothyroidism and hyperlipidemia. He had a viral illness for the past week that initially improved and then he developed a headache with nuchal rigidity. He came to the ED for evaluation. Head CT scan and head CTA are negative for significant findings. Lumbar puncture was done in the emergency room and CSF is clear and colorless. LFTs are mildly elevated. He appears to have a viral meningitis at this time and is admitted for treatment of same. No evidence of any intracerebral hemorrhage and no seizure activity. Allergies Allergy/AdvReac Type Severity Reaction Status Date / Time No Known Allergies Allergy Verified 12/25/21 09:49 Home Medications Medication Instructions Recorded Confirmed Type levothyroxine 125 mcg tablet 125 mcg PO QAM 11/27/21 12/25/21 History (Synthroid) pravastatin 40 mg tablet 40 mg PO QAM 11/27/21 12/25/21 History multivitamin 1 tab PO QAM 12/07/21 12/25/21 History Past Med/Surg History Problem List (Updated 09/28/24 @ 08:31 by Saleem Hung MD) Transaminitis Primary hypothyroidism Hyperlipidemia Viral meningitis Encounter for pre-operative examination Ulnar neuropathy of both upper extremities Carpal tunnel syndrome on both sides Ventral hernia Medical History History of kidney stones Hypothyroidism Tinnitus of both ears Hyperlipidemia Surgical History S/P repair of ventral hernia (12/11/21) Open Ventral Hernia Repair - Black Best, DO History of elbow surgery bilt History of lithotripsy History of umbilical hernia repair History of colonoscopy History of appendectomy History of tooth extraction History of tonsillectomy Family History Other No family history of adverse response to anesthesia Social History Smoking Status: Never smoker Second Hand Exposure: No; Do You Dip or Chew Tobacco: No; Hx Alcohol Use: No Hx Substance Use: No Preferred Language: Greenlandic Communication Ability: Effective Cosmetics Supervisor Required: No Beliefs That Will Affect Care: None Current Living Situation: Spouse Feels Safe at Home: Yes Assistive Devices: Glasses Review of Systems 2 Review of Systems: Constitutionalintermittent fever. Denies chills ENTno blurred vision, no double vision, no epistaxis, no sore throat. He does have photophobia Respiratoryno cough, no wheezing, no shortness of breath Cardiacno palpitations, no chest pain, no syncope Tray nausea, vomiting, diarrhea, melena, hematochezia GUno urinary retention, no urinary incontinence, no dysuria, no hematuria Musculoskeletalno joint pain, no muscle tenderness Skinno bruising, no rashes, no pruritus Neurono isolated weakness, no paresthesia. Mild nuchal rigidity Psychno depression, no anxiety Physical Exam 2 Physical Exam: General-alert and oriented x3, no fever, no chills HEENT-head atraumatic and normocephalic, pupils equal and reactive to light, extraocular muscles intact Neck-no lymphadenopathy or thyromegaly, trachea midline Chest-clear to auscultation. No rales, wheezing or rhonchi Cardiac-regular rate and rhythm, normal S1 and S2 Abdomen-normal bowel sounds, no hepatosplenomegaly Extremities-no cyanosis, clubbing, or edema Neuro-cranial nerves II through XII intact, motor and sensory function within normal limits, strength symmetrical, no focal deficits. He does have currently a headache and mild nuchal rigidity Psych-normal affect, normal mood Results & Data Results & Data Vital Signs (Past 12 Hours) Vital Signs Temp Pulse Pulse Resp BP BP Pulse Ox 09/28/24 08:00 56 L 18 124/72 96 09/28/24 06:11 60 09/28/24 06:00 60 18 141/77 H 94 09/28/24 04:01 62 17 135/76 93 09/28/24 03:34 94 09/28/24 02:48 76 17 142/89 H 94 09/28/24 02:16 76 09/28/24 02:07 37 C 74 20 155/91 H 93 O2 Del Method O2 Flow Rate 09/28/24 08:00 Nasal Cannula 2 09/28/24 06:11 09/28/24 06:00 Room Air 09/28/24 04:01 Room Air 09/28/24 03:34 Room Air 09/28/24 02:48 Room Air 09/28/24 02:16 09/28/24 02:07 Room Air Laboratory Results 09/28/24 03:20 09/28/24 03:20 Code Status & VTE Plan Code Status Full code PG Care Time/CCT Total # of Minutes Spent Total Time Spent with Patient: Total time spent is greater than 50% in coordination of care (as documented) at patient's floor/unit and/or counseling patient: Coding Level of Care Code 36647 INT INP/OBS CARE 3/75MIN Diagnoses Viral meningitis A87.9 Transaminitis R74.01 Hyperlipidemia E78.5 Primary hypothyroidism E03.9
[2024-09-28] MEDS: SODIUM CHLORIDE 0.9% 250 ML IV ONE (10:29)
[2024-09-28] MEDS ORDERED: ONDANSETRON INJ 2 MG/ML 2 ML VIAL IV PRN (10:42)
[2024-09-28] MEDS ORDERED: ACETAMINOPHEN 325 MG TAB PO PRN (10:42)
[2024-09-28] MEDS: methylPREDNISolone 10 mg/mL (For Ped Dose < 7mg) IV SCH (11:08)
[2024-09-28] MEDS: LEVOTHYROXINE SODIUM 125 MCG TABLET PO SCH (12:56)
[2024-09-28] MEDS: MULTIVITAMIN TAB PO SCH (12:56)
[2024-09-28] MEDS: methylPREDNISolone 60 MG in SYRINGE 0 ML IV SCH (12:56)
[2024-09-28] MEDS: cefTRIAXone SODIUM 2,000 MG/50 ML BAG IV SCH (19:26)
[2024-09-28] MEDS: MELATONIN 3 MG TAB PO PRN (23:26)
[2024-09-29 07:24] LABS: Basophils # (auto) 0.02 K/uL (0.00-0.20); Basophils % (auto) 0.1 %; Hemoglobin 13.6 g/dl (14.0-18.0); Immature Granulocytes # (auto) 0.07 K/uL (0.01-0.20); Immature Granulocytes % (auto) 0.5 %; Lymphocytes # (auto) 2.66 K/uL (1.20-3.40); Lymphocytes % (auto) 18.2 %; Mean Corpuscular Hemoglobin 30.4 pg (25.0-34.0); Mean Corpuscular Volume 89.3 fL (80.0-100.0); Mean Platelet Volume 9.5 fL (9.4-12.4); Monocytes # (auto) 0.57 K/uL (0.11-0.59); Monocytes % (auto) 3.9 %; Neutrophils # (auto) 11.29 K/uL (1.40-6.50); Neutrophils % (auto) 77.3 %; Platelet Count 253 K/uL (130-400); RDW Coefficient of Variation 13.4 % (11.5-14.5); RDW Standard Deviation 43.9 fL (36.4-46.3); Red Blood Count 4.48 M/uL (4.70-6.10); White Blood Count 14.61 K/ul (4.8-10.8)
[2024-09-29 07:45] LABS: Albumin Globulin Ratio 1.1 (0.9-2); Albumin Level 3.7 gm/dl (3.4-5.0); BUN Creatinine Ratio 24.1 (10-20); Bilirubin,Total 0.4 mg/dl (0.2-1.0); Calcium 8.6 mg/dl (8.6-10.3); Creatinine Clr Calc Pharmacy 98.2 ml/min; Globulin 3.3 gm/dl (2.5-4.0); Potassium 4.4 mmol/L (3.5-5.1)
--- NOTE | 2024-09-29 11:41 | Discharge Summary ---
Discharge Summary Date of Service September 29, 2024 Principal Dx & Hospital Course #1 = Principal Diagnosis (1) Viral meningitis: Suspected on admission. Cultures are negative. Antibiotics have been discontinued. Meningeal symptoms have completely resolved now. Parenteral steroid therapy will be switched to oral prednisone tapering dose at discharge. Lumbar puncture was performed in the ED and CSF is clear and colorless. Vancomycin and Rocephin were administered in the ED (2) Transaminitis: Mild elevation of liver enzymes on admission. Most likely due to viral illness. Will follow. Statin therapy is on hold and will be resumed at discharge (3) Hyperlipidemia: Statin therapy is on hold due to elevated liver enzymes and will be resumed at discharge (4) Primary hypothyroidism: Stable. Continue current thyroid replacement Plan Home today, September 29, on oral prednisone tapering dose as instructed Admission HPI Per Admitting Provider 64-year-old white male with a history of hypothyroidism and hyperlipidemia. He had a viral illness for the past week that initially improved and then he developed a headache with nuchal rigidity. He came to the ED for evaluation. Head CT scan and head CTA are negative for significant findings. Lumbar punc ture was done in the emergency room and CSF is clear and colorless. LFTs are mildly elevated. He appears to have a viral meningitis at this time and is admitted for treatment of same. No evidence of any intracerebral hemorrhage and no seizure activity. Discharge Exam General-alert and oriented x3, no fever, no chills HEENT-head atraumatic and normocephalic, pupils equal and reactive to light, extraocular muscles intact Neck-no lymphadenopathy or thyromegaly, trachea midline Chest-clear to auscultation. No rales, wheezing or rhonchi Cardiac-regular rate and rhythm, normal S1 and S2 Abdomen-normal bowel sounds, no hepatosplenomegaly Extremities-no cyanosis, clubbing, or edema Neuro-cranial nerves II through XII intact, motor and sensory function within normal limits, strength symmetrical, no focal deficits. Meningeal signs have completely resolved. Psych -normal affect, normal mood Discharge Plan Discharge Items Patient Disposition: Home - Self-Care Reason For Visit: SUSPECTED VIRAL MENINGITIS Discharge Diagnosis: Suspected viral meningitis Condition on Discharge: Good Activity: Resume your previous activity Non-emergency contact: Primary Care Provider Call non-emergency contact if: your symptoms worsen Follow-up/Referrals: [facility] [Primary Care Provider] - Diet: Regular Addtl Attending Provider Instructions: Take prednisone in a tapering dose fashion as directed. A prescription has been sent to [facility] on [facility] Pending Studies at Discharge: No Stand-Alone Forms: [facility], Smoking Cessation Medications and DC Order Prescriptions: New prednisone 10 mg tablet See Rx Instructions .ROUTE .COMPLEX Qty: 12 0RF Rx Instructions: 10 mg orally 3 times a day for 2 days, then 10 mg twice a day for 2 days, then 10 mg once a day for 2 days, then stop Continued pravastatin 40 mg tablet 40 mg PO QAM levothyroxine [Synthroid] 125 mcg tablet 125 mcg PO QAM multivitamin Tablet 1 tab PO QAM Discharge Orders: Discharge Order (Routine); Ordered 09/29/24 Ordered By: Saleem Hung Admission Data Admit Date/Time: 09/28/24 08:22 Attending Provider: Saleem Hung Admit Provider: Saleem Hung Primary Care Provider: [facility] Other Providers: Saleem Hung Hospital Stay Data Consultations 09/28/24 07:20 ED Decision to Admit Stat Diagnostic Imagining Performed 09/28/24 03:24 CT angio head w con Stat CT angio neck with con Stat CT head/brain wo con Stat Pending Results Patient Have Any Pending Studies at Discharge: No Discharge Instructions Given to Patient (Per Discharging Provider) Take prednisone in a tapering dose fashion as directed. A prescription has been sent to [facility] on [facility] Total Time Total Time Spent Total Time Spent (In Minutes): 45 minutes Coding Level of Care Code 74891 INP/OBS DISCH >30 MIN Diagnoses Viral meningitis A87.9 Transaminitis R74.01 Hyperlipidemia E78.5 Primary hypothyroidism E03.9
[2024-09-29 11:49] VITALS: BP 112/66; PULSE 51; RESP 18; TEMP 97.7; O2SAT 96
[2024-10-01 14:37] LABS: EBV DNA Quant PCR Not Detected copies/mL; EBV DNA Quant Source CSF; EBV DNA, Quant Log Not Detected Log cps/mL
[2024-10-02 04:31] LABS: Babesia microti DNA Not Detected (Not Detected)
== END 2024-09-29 12:16 | disposition home or self-care (01) | DRG 76 ==
LOC: ED 01:59 → EDINP 08:22 → 2W 10:22